=== PATIENT | female | born 1935 | race Caucasian/White ===

== ENCOUNTER 2023-09-30 12:38 | Inpatient (IN) | payer MEDICARE, OTHER ==
[~2023-09-30] VITALS: Ht 162.6 cm; Wt 61.7 kg
[2023-09-30] VITALS (29 sets, daily range): BP systolic 49–116; BP diastolic 27–77; TEMP 96.4–97.4; O2SAT 90–100
[2023-09-30] MEDS: IV NS 0.9% 1,000 ML BAG IV ONE (13:00)
[2023-09-30 13:04] LABS: BASOPHILS % (AUTO) 0.8 % (0.0-2.0); EOSINOPHILS % (AUTO) 0.9 % (0.0-6.0); LYMPHOCYTES # (AUTO) 0.4 K/uL (0.8-4.8); LYMPHOCYTES % (AUTO) 10.6 % (20.0-44.0); MEAN CORPUSCULAR HEMOGLOBIN 31 PG (26.0-33.0); MEAN CORPUSCULAR HGB CONC 34 g/dl (31.0-36.0); MEAN CORPUSCULAR VOLUME 92 fL (82-100); MONOCYTES # (AUTO) 0.2 K/uL (0.1-1.30); MONOCYTES % (AUTO) 4.3 % (2.0-12.0); NEUTROPHILS % (AUTO) 83.4 % (43.0-81.0); PLATELET COUNT (AUTO) 81 K/uL (150-450); RED BLOOD CELL COUNT(AUTO) 2.09 MIL/uL (4.0-5.2); RED CELL DISTRIBUTION WIDTH 16.9 % (11.5-15.0); WHITE BLOOD COUNT (AUTO) 3.5 K/uL (4.3-11.0)
[2023-09-30 13:12] LABS: CALCIUM, SERUM 6.3 mg/dL (8.5-10.1); CARBON DIOXIDE 14 mmol/L (21-32); CHLORIDE 98 mmol/L (98-107); GLUCOSE 95 mg/dL (74-106); POTASSIUM 5.7 mmol/L (3.5-5.1); SODIUM SERUM 135 mmol/L (136-145)
[2023-09-30 13:14] LABS: CREATININE 13.8 mg/dL (0.6-1.3); UREA NITROGEN, BLOOD 123 mg/dL (7-18)
[2023-09-30 13:15] LABS: INR 1.12 (0.91-1.10); PARTIAL THROMBOPLASTIN TIME 38.4 SEC (24.3-34.3); PROTHROMBIN TIME 11.8 SECS (9.2-11.1)
[2023-09-30 13:19] LABS: HEMATOCRIT 19 % (33-45); HEMOGLOBIN 6.5 g/dL (11.5-14.8)
[2023-09-30 13:23] LABS: ALANINE AMINOTRANSFERASE 14 U/L (12-78); ALKALINE PHOSPHATASE 74 U/L (46-116); ASPARTATE AMINOTRANSFERASE 15 U/L (15-37); BILIRUBIN,DIRECT 0.2 mg/dL (0.0-0.2); BILIRUBIN,TOTAL 0.4 mg/dL (0.2-1.0); NT-PRO BNP 6788 pg/mL (0-125); TOTAL PROTEIN, SERUM 5.4 g/dL (6.4-8.2)
[2023-09-30] MEDS: PIPERACILLIN /TAZOBACTAM 3.375 G in IV D5W 50 ML IV ONE (13:35)
[2023-09-30] MEDS: AZITHROMYCIN 500 MG in IV D5W 250 ML IV ONE (13:50)
[2023-09-30] MEDS: SODIUM BICARBONATE SYR 50 MEQ/50 ML DISP.SYRIN IV ONE (13:55)
[2023-09-30] MEDS ORDERED: FOLI0.4T6 PO (14:03)
[2023-09-30] MEDS ORDERED: LINA290C PO (14:03)
[2023-09-30] MEDS ORDERED: FAMO40TA7 PO (14:03)
[2023-09-30] MEDS ORDERED: LIDO76.5 TP (14:03)
[2023-09-30] MEDS ORDERED: CRAN425C6 PO (14:03)
[2023-09-30] MEDS ORDERED: OMEG1CAP55 PO (14:03)
[2023-09-30] MEDS ORDERED: CLOT15CR5 TP (14:03)
[2023-09-30] MEDS ORDERED: LOPE-195 PO (14:03)
[2023-09-30] MEDS ORDERED: DIPH1TAB PO (14:03)
[2023-09-30] MEDS ORDERED: ERGO500093 PO (14:03)
[2023-09-30] MEDS ORDERED: CALC0.253 PO (14:03)
[2023-09-30] MEDS ORDERED: ESCI5TAB PO (14:03)
[2023-09-30] MEDS ORDERED: ACET-2030 PO (14:03)
[2023-09-30] MEDS ORDERED: L. A1TAB10 PO (14:03)
[2023-09-30] MEDS ORDERED: AMLO5TAB4 PO (14:03)
[2023-09-30] MEDS ORDERED: CALC667C6 PO (14:03)
[2023-09-30] MEDS ORDERED: [UNRECOGNIZED DRUG - CODE] IV (14:03)
[2023-09-30] MEDS ORDERED: ESOM40CA52 PO (14:03)
[2023-09-30] MEDS ORDERED: HONE44PA TP (14:04)
[2023-09-30] MEDS ORDERED: COLL30OI TP (14:04)
[2023-09-30] MEDS ORDERED: SEVE800T8 PO (14:04)
[2023-09-30] MEDS ORDERED: ZINC57OI4 TP (14:04)
[2023-09-30] MEDS ORDERED: FOLI0.8T2 PO (14:04)
[2023-09-30] MEDS ORDERED: CRAN3875 PO (14:04)
[2023-09-30] MEDS ORDERED: LEVO75TA PO (14:04)
[2023-09-30] MEDS ORDERED: ZINC220C6 PO (14:04)
[2023-09-30] MEDS ORDERED: OLAN2.5T3 PO (14:04)
[2023-09-30] MEDS ORDERED: ASCO-352 PO (14:04)
[2023-09-30] MEDS ORDERED: MULT-213 PO (14:04)
[2023-09-30] MEDS ORDERED: CYAN-51 PO (14:04)
[2023-09-30] MEDS ORDERED: SODIUM POLYSTYRENE SULFONATE 15 G/60 ML BOTTLE ONE (14:07)
[2023-09-30] MEDS: VANCOMYCIN 1 GM in IV D5W 250 ML IV ONE (14:10)
[2023-09-30] MEDS ORDERED: SODIUM BICARBONATE SYR 50 MEQ/50 ML DISP.SYRIN ONE (14:15)
[2023-09-30] MEDS: SODIUM POLYSTYRENE SULFONATE 15 G/60 ML BOTTLE RC ONE (14:23)
[2023-09-30] MEDS: SODIUM POLYSTYRENE SULFONATE 15 G/60 ML BOTTLE PO ONE (14:23)
[2023-09-30] MEDS ORDERED: ACETAMINOPHEN 650 MG/SUPP.RECT RC PRN ×2 (14:30→15:00)
[2023-09-30] MEDS ORDERED: ALBUTEROL FS 2.5 MG/3 ML VIAL.NEB ONE (14:42)
[2023-09-30] MEDS: ALBUTEROL FS 2.5 MG/3 ML VIAL.NEB NEB ONE (14:52)
[2023-09-30] MEDS ORDERED: NOREPINEPHRINE 8 MG in IV NS 0.9% 250 ML IV PRN (15:00)
[2023-09-30] MEDS ORDERED: ONDANSETRON HCL/PF 4 MG/2 ML VIAL IVP PRN (15:00)
[2023-09-30] MEDS ORDERED: IV NS 0.9% 100 ML IV SCH (15:00)
[2023-09-30] MEDS: NOREPINEPHRINE 8 MG in IV D5W 242 ML IV PRN (15:20)
[2023-09-30 15:44] LABS: NEUTROPHILS % (MANUAL) 86 (42-76)
[2023-09-30 15:45] LABS: ANISOCYTOSIS 1+; LYMPHOCYTES % (MANUAL) 10 % (16-48); MONOCYTES % (MANUAL) 4 % (0-11.0); PLATELET ESTIMATE DECREASED
[2023-09-30] MEDS: IV NS 0.9% 1,000 ML IV PRN (16:14)
[2023-09-30] MEDS ORDERED: MORPHINE SULFATE PF DRIP 100 MG in IV D5W 96 ML IV PRN (17:30)
[2023-09-30] MEDS: MORPHINE SULFATE INJ 2 MG/ML DISP.SYRIN IV ONE (17:41)
[2023-09-30] MEDS: MORPHINE SULFATE PF DRIP 100 MG in IV D5W 96 ML IV PRN (18:52)
[2023-09-30] MEDS ORDERED: PIPERACILLIN /TAZOBACTAM 2.25 G in IV D5W 50 ML IV SCH (21:00)
[2023-10-01] VITALS (30 sets, daily range): BP systolic 49–62; BP diastolic 30–39; TEMP 96–96.2; O2SAT 66–100
[2023-10-01] MEDS ORDERED: VANCOMYCIN POST DIALYSIS 500MG IV PRN (06:00)
[2023-10-01] MEDS ORDERED: PANTOPRAZOLE 40 MG VIAL IV SCH (09:00)
[2023-10-04] MEDS ORDERED: VANCOMYCIN 500 MG in IV D5W 100ml IV SCH (14:00)
== END 2023-10-01 10:13 | DRG 871 ==
LOC: ER 12:49 → ICU 15:38
PROVIDERS: ADMIT Internal Medicine; ATTEND Internal Medicine
PROC: 05HC33Z Insertion of Infusion Device into Left Basilic Vein, Percutaneous Approach (ICD-10-PCS; principal; 2023-09-30)
DX: A41.9 Sepsis, unspecified organism (principal); G93.41 Metabolic encephalopathy; J96.01 Acute respiratory failure with hypoxia; N17.9 Acute kidney failure, unspecified; I12.0 Hypertensive chronic kidney disease with stage 5 chronic kidney disease or end stage renal disease; F03.93 Unspecified dementia, unspecified severity, with mood disturbance; N18.5 Chronic kidney disease, stage 5; D61.818 Other pancytopenia; E44.0 Moderate protein-calorie malnutrition; E87.20 Acidosis, unspecified; J90 Pleural effusion, not elsewhere classified; J98.11 Atelectasis; E05.90 Thyrotoxicosis, unspecified without thyrotoxic crisis or storm; Z66 Do not resuscitate; Z51.5 Encounter for palliative care; Z20.822 Contact with and (suspected) exposure to COVID-19; I25.2 Old myocardial infarction; I89.0 Lymphedema, not elsewhere classified; K21.9 Gastro-esophageal reflux disease without esophagitis; K80.50 Calculus of bile duct without cholangitis or cholecystitis without obstruction; F32.9 Major depressive disorder, single episode, unspecified; L89.159 Pressure ulcer of sacral region, unspecified stage; L89.609 Pressure ulcer of unspecified heel, unspecified stage; Z87.19 Personal history of other diseases of the digestive system; D63.8 Anemia in other chronic diseases classified elsewhere; E03.9 Hypothyroidism, unspecified; E83.52 Hypercalcemia; E87.5 Hyperkalemia; R13.10 Dysphagia, unspecified; Z85.41 Personal history of malignant neoplasm of cervix uteri; Z90.710 Acquired absence of both cervix and uterus; Z79.890 Hormone replacement therapy; Z79.899 Other long term (current) drug therapy; Z92.3 Personal history of irradiation
CPT/HCPCS: 36410; 36415; 36600; 71045-TC; 80048-TC; 80076-TC; 82803-TC; 83605-TC; 83880; 84484-TC; 85025-TC; 85730-TC; 86850-TC; 87040-TC; 90935-TC; G0378; J0456; J2270; J2274; J2543; J3370; J3490; J7030; J7050; J7060